=== PATIENT | female | born 1935 | race African-American/Black ===

== ENCOUNTER 2016-08-13 09:00 | Observation (INO) | payer MEDICARE, OTHER ==
[~2016-08-13] VITALS: Ht 157.5 cm; Wt 52.0 kg
[2016-08-13] VITALS (8 sets, daily range): BP systolic 105–144; BP diastolic 41–55; PULSE 60–87; RESP 13–18; TEMP 97.9; Ht 157.5 cm; Wt 52.0 kg
[~2016-08-13 09:00] MED LIST: ATENOLOL PO; LOSARTAN PO; MULTAQ PO; NEXIUM PO; PREVASTATIN PO; [UNRECOGNIZED DRUG - OTHER] PO
[2016-08-13] MEDS ORDERED: ESOM40CA PO (09:29)
[2016-08-13] MEDS ORDERED: ATEN50TA PO (09:29)
[2016-08-13] MEDS ORDERED: PRAV40TA76 PO (09:29)
[2016-08-13] MEDS ORDERED: CLOP75TA27 PO (09:30)
[2016-08-13] MEDS ORDERED: ESOM40CA51 PO (09:30)
[2016-08-13] MEDS ORDERED: DRON400T2 PO (09:31)
[2016-08-13] MEDS ORDERED: LOSA1TAB19 PO (09:35)
[2016-08-13] MEDS ORDERED: ONDANSETRON 4 MG INJ IV STA (09:38)
[2016-08-13] MEDS ORDERED: HYDROmorphONE 1 MG/ML SYG IV STA ×2 (09:38→13:38)
[2016-08-13 09:53] LABS: ADD SCAN DIFF NO
[2016-08-13 09:57] LABS: BASOPHIL # 0.1 10^3/ul (0.0-0.1); BASOPHILS % 0.9 % (0.0-2.0); EOSINOPHILS # 0.6 10^3/ul (0.0-0.5); EOSINOPHILS % 9.7 % (0.0-7.0); HEMATOCRIT 28.6 % (37.0-47.0); HEMOGLOBIN 8.9 g/dl (12.0-16.0); LYMPHOCYTES # 1.5 10^3/ul (0.8-2.9); LYMPHOCYTES % 26.1 % (15.0-51.0); MEAN CORPUSCULAR HEMOGLOBIN 30.1 pg (29.0-33.0); MEAN CORPUSCULAR HGB CONC 31.1 g/dl (32.0-37.0); MEAN CORPUSCULAR VOLUME 96.6 fl (82.0-101.0); MEAN PLATELET VOLUME 11.3 fl (7.4-10.4); MONOCYTE # 0.3 10^3/ul (0.3-0.9); MONOCYTES % 5.6 % (0.0-11.0); NEUTROPHIL # 3.4 10^3/ul (1.6-7.5); NEUTROPHILS % 57.5 % (39.0-77.0); PLATELET COUNT 234 10^3/UL (140-415); RED BLOOD COUNT 2.96 10^6/ul (4.20-5.40); RED CELL DISTRIBUTION WIDTH 13.2 % (11.5-14.5); WHITE BLOOD COUNT 5.9 10^3/ul (4.8-10.8)
--- NOTE | 2016-08-13 10:01 | RADRPT ---
PROCEDURE: XR Chest. CLINICAL INDICATION: Possible stroke TECHNIQUE: PA and Lateral views of the chest were obtained. COMPARISON: FINDINGS: The cardiac silhouette is mildly enlarged. Right dual-chamber chest pacemaker in place. Atheroscler otic calcification of the aortic arch. .The lungs are clear without pleural effusion or focal conso lidation. No pneumothorax. The osseous structures and soft tissues are unremarkable. IMPRESSION: 1. No evidence for active cardiopulmonary disease. RPTAT:AAJJ Physician Edilma Date Time Electronically viewed and signed by Physician Edilma on 08/13/2016 10:01 NEFTALI/
[2016-08-13 10:17] LABS: INR 0.89; PT RATIO 0.9
[2016-08-13 10:18] LABS: CHLORIDE 105 mmol/L (97-110); PARTIAL THROMBOPLASTIN TIME 29.7 Sec (25.0-35.0); POTASSIUM 5.3 mmol/L (3.5-5.1); SODIUM 144 mmol/L (135-144)
[2016-08-13 10:21] LABS: ANION GAP 19 (8-16); BLOOD UREA NITROGEN 31 mg/dl (7-20); CALCIUM 9.8 mg/dl (8.4-10.2); CARBON DIOXIDE 25 mmol/L (21-31); CREATININE 1.43 mg/dl (0.44-1.00); GLUCOSE 107 mg/dl (70-220)
[2016-08-13 10:26] LABS: ADD UMIC YES; URINE BILIRUBIN (Dip) NEGATIVE (NEGATIVE); URINE BLOOD (Dip) NEGATIVE (NEGATIVE); URINE COLOR LT. YELLOW (YELLOW); URINE GLUCOSE (Dip) NEGATIVE (NEGATIVE); URINE KETONES (Dip) NEGATIVE (NEGATIVE); URINE LEUKOCYTE ESTERASE (Dip) TRACE (NEGATIVE); URINE NITRITE (Dip) NEGATIVE (NEGATIVE); URINE TOTAL PROTEIN (Dip) NEGATIVE (NEGATIVE); URINE UROBILINOGEN (Dip) 0.2 E.U./dL (0.1-1.0)
[2016-08-13 10:33] LABS: TROPONIN-I < 0.010 ng/ml (0.00-0.12)
[2016-08-13 10:48] LABS: BARBITURATES Negative (NEGATIVE); BENZODIAZEPINES Negative (NEGATIVE); CANNABINOIDS Negative (NEGATIVE)
--- NOTE | 2016-08-13 10:49 | RADRPT ---
PROCEDURE: CT Brain without contrast. CLINICAL INDICATION: Vertigo. Weakness.. TECHNIQUE: A CT of the brain was performed on a multi-slice CT scanner utilizing axial sections fr om the skull base through the vertex without contrast. Coronal and sagittal reconstructed images wer e provided. One or more of the following does reduction techniques were used: Automated exposure c ontrol; adjustment of the mA and/or kV according to patient size; use of the aorta of reconstruction technique. Images were reviewed on a high-resolution PACS workstation. Exam DLP equals 554.95 mGy- cm. The CTDI equals 39.46 mGy COMPARISON: CT brain 06/19/2013 FINDINGS: Mild diffuse cerebral and cerebellar atrophy is present. There is no evidence of intracranial hemor rhage, mass effect or midline shift. No abnormal intra-axial or extra-axial fluid collections are s een. There are mild deep white matter patchy hypodensities which are nonspecific, but typically see n in small vessel chronic ischemic disease. The density of the brain is otherwise normal and the g ray/white matter differentiation is well preserved. The osseous structures and visualized paranasal sinuses are unremarkable. IMPRESSION: 1. No CT evidence of acute intracranial pathology. 2. Mild diffuse atrophy and deep white matter microangiopathic ischemic changes. RPTAT: KK .Markel Martinez MD, Date Time Electronically viewed and signed by .Markel Martinez MD, MD on 08/13/2016 10:49 .B/
[2016-08-13 10:50] LABS: COCAINE Negative (NEGATIVE); OPIATES Negative (NEGATIVE)
[2016-08-13] MEDS ORDERED: ONDANSETRON 4 MG INJ IV PRN (11:00)
[2016-08-13] MEDS ORDERED: ACETAMINOPHEN 325 MG TAB PO PRN (11:00)
[2016-08-13 11:07] LABS: SQUAMOUS EPITHELIAL CELL,UR OCCASIONAL; URINE RBCS NONE SEEN /HPF (0)
--- NOTE | 2016-08-13 12:46 | ERA ---
ER Documentation Chief Complaint Date/Time DATE: 08/13/16 TIME: 12:43 Chief Complaint HEADACHE DIZZINESS AND VOMITING SINCE THIS MORNING. NO NEURO DEFICIT HPI Patient is an 81-year-old female with anemia and atrial fibrillation who presents with dizziness. She had headache as well. The symptoms started at 6 AM but she woke up with the symptoms. She had no symptoms yesterday. She has nausea and vomiting. She has no fevers and no weakness. She has no slurred speech. She is currently on Plavix and has an allergy to aspirin. Upon review of old medical records this is the patient's fifth visit to the ER since 2008. Her primary doctor is Dr. Lis Steven. ROS All systems reviewed and are negative except as per history of present illness. Medications Home Meds Reported Medications Losartan-Hydrochlorothiazide (Losartan-HCTZ) 50-12.5 Mg Tab, 1 TAB PO DAILY, TAB 08/13/16 Dronedarone Hydrochloride* (Multaq*) 400 Mg Tablet, 400 MG PO DAILY, TAB 08/13/16 Esomeprazole Magnesium (Esomeprazole Magnesium) 40 Mg Capsule.dr, 40 MG PO BEFORE BREAKFAST, #30 CAP 08/13/16 Clopidogrel Bisulfate (Clopidogrel) 75 Mg Tablet, 75 MG PO DAILY, #30 TAB 08/13/16 Pravastatin Sodium* (Pravastatin Sodium*) 40 Mg Tablet, 40 MG PO HS, TAB 08/13/16 Esomeprazole Mag Trihydrate (Nexium) 40 Mg Capsule.dr, 40 MG PO DAILY, #30 CAP 08/13/16 Atenolol* (Atenolol*) 50 Mg Tablet, 50 MG PO BID, #60 TAB 08/13/16 Discontinued Reported Medications [Nexium] No Conflict Check, MG PO DAILY 06/19/13 [Losartan] No Conflict Check, MG PO DAILY 06/19/13 [Chlovedotren] No Conflict Check, MG PO DAILY 06/19/13 [Prevastatin] No Conflict Check, MG PO DAILY 06/19/13 [Atenolol] No Conflict Check, MG PO DAILY 06/19/13 [Multaq] No Conflict Check, MG PO DAILY 06/19/13 Allergies Allergies: Coded Allergies: ibuprofen (Verified Allergy, Mild, 08/13/16) prochlorperazine (Verified Allergy, Mild, 08/13/16) Uncoded Allergies: ASPIRIN (Allergy, Mild, 03/28/09) PMhx/Soc History of Surgery: Yes (PACEMAKER) Anesthesia Reaction: No Hx Neurological Disorder: No Hx Respiratory Disorders: No Hx Cardiac Disorders: Yes (HTN, AFIB) Hx Psychiatric Problems: No Hx Miscellaneous Medical Probl: No Hx Alcohol Use: No Hx Substance Use: No Hx Tobacco Use: No Smoking Status: Never smoker FmHx Family History: diabetes Physical Exam Vitals Vital Signs Date Time Temp Pulse Resp B/P Pulse Ox O2 Delivery O2 Flow Rate FiO2 08/13/16 12:28 60 18 144/55 100 Nasal Cannula 2.0 08/13/16 12:15 60 08/13/16 10:00 97.9 63 20 155/60 100 Nasal Cannula 2.0 08/13/16 09:35 Nasal Cannula 2 08/13/16 09:05 97.9 66 20 151/67 100 Physical Exam Const: Mild distress Head: Atraumatic Eyes: Normal Conjunctiva ENT: Normal External Ears, Nose and Mouth. Neck: Full range of motion..~ No meningismus. Resp: Clear to auscultation bilaterally Cardio: Regular rate and rhythm, no murmurs Abd: Soft, non tender, non distended. Normal bowel sounds Skin: No petechiae or rashes Back: No midline or flank tenderness Ext: No cyanosis, or edema Neur: Awake and alert, no slurred speech, no weakness of the arms or legs, however patient is dizzy when she opens her eyes Psych: Normal Mood and Affect Result Diagram: 08/13/1647 08/13/16 0947 Results 24 hrs Laboratory Tests Test 08/13/16 09:47 08/13/16 09:57 08/13/16 10:11 Activated Partial Thromboplast Time 29.7Sec Anion Gap 19 Basophils # 0.110^3/ul Basophils % 0.9% Blood Urea Nitrogen 31mg/dl Calcium Level 9.8mg/dl Carbon Dioxide Level 25mmol/L Chloride Level 105mmol/L Creatinine 1.43mg/dl Eosinophils # 0.610^3/ul Eosinophils % 9.7% Glucose Level 107mg/dl Hematocrit 28.6% Hemoglobin 8.9g/dl Hemoglobin A1c 5.4% INR International Normalized Ratio 0.89 Lymphocytes # 1.510^3/ul Lymphocytes % 26.1% Mean Corpuscular Hemoglobin 30.1pg Mean Corpuscular Hemoglobin Concent 31.1g/dl Mean Corpuscular Volume 96.6fl Mean Platelet Volume 11.3fl Monocytes # 0.310^3/ul Monocytes % 5.6% Neutrophils # 3.410^3/ul Neutrophils % 57.5% Nucleated Red Blood Cells # 0.010^3/ul Nucleated Red Blood Cells % 0.0/100WBC Platelet Count 38145^3/UL Potassium Level 5.3mmol/L Prothrombin Time 12.0Sec Prothrombin Time Ratio 0.9 Red Blood Count 2.9610^6/ul Red Cell Distribution Width 13.2% Sodium Level 144mmol/L Troponin I < 0.010ng/ml White Blood Count 5.910^3/ul Bedside Glucose 98mg/dL Urine Amphetamines Screen Negative Urine Barbiturates Negative Urine Benzodiazepines Screen Negative Urine Bilirubin NEGATIVE Urine Cannabinoids Negative Urine Clarity CLEAR Urine Cocaine Screen Negative Urine Color LT. YELLOW Urine Glucose NEGATIVE% Urine Hemoglobin NEGATIVE Urine Ketones NEGATIVE Urine Leukocyte Esterase TRACE Urine Microscopic RBC NONE SEEN/HPF Urine Microscopic WBC 0-2/HPF Urine Nitrite NEGATIVE Urine Opiates Screen Negative Urine Specific [place] 1.010 Urine Squamous Epithelial Cells OCCASIONAL Urine Total Protein NEGATIVE Urine Urobilinogen 0.2 E.U./dL Urine pH 6.5 Current Medications Medications (Trade) Dose Ordered Sig/Derek Route PRN Reason Start Time Stop Time Status Last Admin Dose Admin Hydromorphone HCl (Dilaudid) 0.5 mg ONCE STAT IV 08/13/16 09:38 08/13/16 09:40 DC 08/13/16 10:10 Ondansetron HCl (Zofran Inj) 4 mg ONCE STAT IV 08/13/16 09:38 08/13/16 09:40 DC 08/13/16 10:10 Ondansetron HCl (Zofran Inj) 4 mg ER BRIDGE PRN IV NAUSEA AND/OR VOMITING 08/13/16 11:00 08/14/16 10:59 Acetaminophen (Tylenol Tab) 650 mg ER BRIDGE PRN PO MILD PAIN/FEVER 08/13/16 11:00 08/14/16 10:59 08/13/16 11:41 Procedures/MDM CT brain shows no acute abnormality per radiology. Chest x-ray is normal per radiology. EKG read by me: Rate/Rhythm: Paced rhythm at 60 Intervals: Normal Impression: Paced rhythm with negative Sgarbossa criteria Patient is a 81-year-old female with anemia and atrial fibrillation who presents with headache and dizziness. I am concerned for acute stroke which could be a posterior circulation stroke given her symptoms. CT scan shows no intracranial mass or bleed. The patient was given aspirin after her CT scan was negative for bleed. The patient had an NIH stroke scale and bedside swallow evaluation performed. I spoke with Dr. Parham the patient's primary doctor who will admit her for a telemetry bed. She is outside the window for TPA given the fact that she woke up with the symptoms. Departure Diagnosis: Primary Impression: Stroke Qualified Code: I63.9 - Cerebrovascular accident (CVA), unspecified mechanism Additional Impression: Dizziness Condition: RENÉE Pantoja MD Aug 13, 2016 12:46
[2016-08-13] MEDS ORDERED: SOD CHLORIDE 0.9% 1,000 ML IV ONE (17:00)
[2016-08-13] MEDS ORDERED: METOCLOPRAMIDE 10 MG INJ IV ONE (17:30)
[2016-08-13] MEDS ORDERED: MECLIZINE 12.5 MG TAB PO ONE (18:00)
--- NOTE | 2016-08-13 20:51 | HP ---
DATE OF ADMISSION: 08/13/2016 CHIEF COMPLAINT: Dizziness and nausea, vomiting. HISTORY OF PRESENT ILLNESS: This 81-year-old Filipina with history of hypertension, chronic anemia, peptic ulcer disease, hypercholesterolemia, paroxysmal AFib/Aflutter, and sick sinus syndrome, status post pacemaker woke up this morning with severe dizziness while in bed. The patient reports that the dizziness is constant, but is exacerbated by head movements. She has been vomiting up clear vomitus and is brought into the emergency room for evaluation. In the emergency room, her head CT was shown be normal, but patient had marked anemia and increased BUN and creatinine as well as elevated potassium, so she is admitted for dehydration and IV fluid, rule out CVA versus labyrinthitis. PAST MEDICAL HISTORY: 1. Hypertension. 2. Anemia. 3. Hypercholesterolemia. 4. Mild chronic kidney disease. 5. Peptic ulcer disease. 6. Paroxysmal atrial fibrillation, atrial flutter. 7. Sick sinus syndrome, status post pacemaker placement in 03/28/2009. ALLERGIES: ASPIRIN, WHICH CAUSES NAUSEA AND VOMITING. SOCIAL HISTORY: The patient never smoked and she does not drink alcohol. She currently lives with her children at home. MEDICATION HISTORY: 1. Nexium 40 mg p.o. every day. 2. Pravastatin 40 mg p.o. every day. 3. Plavix 75 mg p.o. every day. 4. Losartan 50/hydrochlorothiazide 12.5 every day. 5. Mutaq 400 mg p.o. daily. 6. Atenolol 50 mg p.o. b.i.d. REVIEW OF SYSTEMS: CONSTITUTIONAL: The patient denies any headache or fatigue, or malaise. HEENT: She reports that she has been having ears and mild nasal congestion for the past few days. No throat. No cough. CHEST: No coughing, wheezing, or shortness of breath. No chest pain or palpitation. ABDOMEN: No abdominal pain, but patient has been having nausea and vomiting. She denies any diarrhea or constipation. EXTREMITIES: Denies any increased edema or leg cramps. NEUROLOGIC: The patient denies any numbness or tingling or localized weakness. GENITOURINARY: Denies any urinary frequency, burning, or hematuria. PHYSICAL EXAMINATION: GENERAL: Elderly female who is lying in bed, appearing tired and weak. VITAL SIGNS: Temperature 97.9, blood pressure 144/55, pulse of 60, respiration rate 18, O2 saturation 100% on 2 liters nasal cannula. HEENT: Pupils equally round, reactive to light. Oropharynx clear. NECK: No JVD. LUNGS: Clear to auscultation. CARDIAC: Regular rate and rhythm. Normal S1, S2. ABDOMEN: Active bowel sounds, soft, nondistended, nontender. EXTREMITIES: No clubbing, cyanosis, no edema. NEUROLOGIC: Cranial nerves II through XII grossly intact. Motor and sensory normal to light touch, and 4+/5 throughout. LABORATORY: WBC 5.9, hemoglobin 8.9, hematocrit 28.6, platelet count 234,000. Sodium 144, potassium 5.3, chloride 105, bicarbonate 25, BUN 31, creatinine 1.43 , glucose 107, calcium 9.8. Troponin 0.01. The patient's chest x-ray shows no active cardiopulmonary disease. Head CT shows no evidence of acute intracranial pathology. There is mild diffuse atrophy and deep white matter microangiopathic ischemic changes. IMPRESSION: 1. Dizziness. Less likely to be due to cerebrovascular accident since the head CT is negative. Would like to order a head MRI, but patient has a pacemaker, so I will talk to our radiologist to see if CT angiogram is a better option for the posterior fossa. Otherwise, will try the patient on meclizine and see if this controls her vertigo. In the meantime, the patient is having nausea and vomiting, so will continue to control this with Reglan and Zofran if needed and advance diet as tolerated. We will also hydrate the patient with some IV fluid for the mild dehydration. 2. Anemia. The patient is being evaluated by a farm laborer as an outpatient for other causes of refractory anemia, but she does have very mild stage I chronic kidney disease, so we will go ahead and give her an Epogen shot while she is in the hospital and follow H and H to see if we need to transfuse. 3. Hypertension and cardiac arrhythmia. Continue Mutaq and beta-martir, but hold Losartan for now until blood pressure comes up higher. Dictated By: SHERINE ESCOBAR MD DP/NTS Conf#: [id number] DID#: [id number] MTDD
[2016-08-13] MEDS: ATORVASTATIN 10 MG TAB PO SCH (22:59)
[2016-08-13] MEDS: ATENOLOL 50 MG TAB PO SCH (23:00)
[2016-08-14] VITALS (12 sets, daily range): BP systolic 108–137; BP diastolic 52–60; PULSE 60–64; RESP 17–19
[2016-08-14] MEDS: PANTOPRAZOLE (EC) 40 MG TAB PO SCH (06:18)
[2016-08-14 06:56] LABS: CHOL/HDL RATIO 3.8 RATIO
[2016-08-14] MEDS: DRONEDARONE HYDROCHLORIDE 400 MG TAB PO SCH (08:50)
[2016-08-14] MEDS: CLOPIDOGREL 75 MG TAB PO SCH (08:51)
[2016-08-14] MEDS: ATENOLOL 50 MG TAB PO SCH ×2 (08:51→20:33)
[2016-08-14] MEDS ORDERED: MECLIZINE 25 MG TAB PO PRN (15:00)
[2016-08-14] MEDS ORDERED: EPOETIN ALFA (NESRD) 3,000 UNITS/ML VIAL SC ONE (16:30)
[2016-08-14 16:51] LABS: ADD SCAN DIFF NO; BASOPHILS % 0.7 % (0.0-2.0); EOSINOPHILS # 0.5 10^3/ul (0.0-0.5); EOSINOPHILS % 8.2 % (0.0-7.0); HEMATOCRIT 26.3 % (37.0-47.0); HEMOGLOBIN 8.4 g/dl (12.0-16.0); MEAN CORPUSCULAR HEMOGLOBIN 31.2 pg (29.0-33.0); MEAN CORPUSCULAR HGB CONC 31.9 g/dl (32.0-37.0); MEAN CORPUSCULAR VOLUME 97.8 fl (82.0-101.0); MEAN PLATELET VOLUME 10.8 fl (7.4-10.4); MONOCYTE # 0.6 10^3/ul (0.3-0.9); MONOCYTES % 9.3 % (0.0-11.0); NEUTROPHIL # 2.9 10^3/ul (1.6-7.5); NEUTROPHILS % 48.6 % (39.0-77.0); PLATELET COUNT 213 10^3/UL (140-415); RED BLOOD COUNT 2.69 10^6/ul (4.20-5.40); RED CELL DISTRIBUTION WIDTH 13.2 % (11.5-14.5)
[2016-08-14 17:02] LABS: POTASSIUM 4.5 mmol/L (3.5-5.1)
[2016-08-14 17:05] LABS: CREATININE 1.39 mg/dl (0.44-1.00)
[2016-08-14] MEDS ORDERED: DIPHENHYDRAMINE 25 MG CAP PO PRN (18:00)
[2016-08-14] MEDS ORDERED: FUROSEMIDE 20 MG INJ IV PRN (18:00)
[2016-08-14] MEDS ORDERED: ACETAMINOPHEN 500 MG TAB PO PRN (18:00)
--- NOTE | 2016-08-14 18:54 | PN ---
DATE: 08/14/2016 SUBJECTIVE: The patient reports that she is no longer dizzy but still feels very weak and shortness of breath on exertion. OBJECTIVE: VITAL SIGNS: Temperature 97.9, blood pressure 109/52, pulse of 60, respiration rate 17, O2 saturati on 96% on room air. HEENT: Pupils equally round, reactive to light. Mild conjunctival pallor. Oropharynx clear. CHEST: Lungs are clear to auscultation with minimal bibasilar crackles. CARDIAC: Regular rate and rhythm. Normal S1, S2. ABDOMEN: Active bowel sounds. Soft, nondistended, nontender. EXTREMITIES: No clubbing, cyanosis or edema. LABORATORY DATA: WBC 6.0, hemoglobin 8.4, hematocrit 26.3, platelet count 213,000. Sodium 145, pot assium 4.5, chloride 106, carbon dioxide 27, BUN 32, creatinine 1.39, glucose 87. ASSESSMENT AND PLAN: 1. Dizziness with nausea and vomiting, most likely due to viral labyrinthitis and is improved with meclizine. 2. Weakness with severe anemia. The patient is getting workup for occult anemia at claims account specialist's office. Will transfuse her with 2 units of packed red blood cells for now to improve pulmonary and cardiac function. 3. Elevated BUN, creatinine. May be due to dehydration but also due to mild chronic renal failure. Will hold off on further IV fluid since the patient will be receiving packed red blood cells. The patient has been getting Epogen shot, but I do not expect this to kick in for several days. Dictated By: SHERINE ESCOBAR MD DP/NTS Conf#: [id number] DID#: [id number]
[2016-08-14] MEDS: ATORVASTATIN 10 MG TAB PO SCH (20:33)
[2016-08-15] VITALS (13 sets, daily range): BP systolic 128–186; BP diastolic 55–72; PULSE 60; RESP 18–20
[2016-08-15] MEDS: PANTOPRAZOLE (EC) 40 MG TAB PO SCH (06:11)
[2016-08-15 07:32] LABS: ADD SCAN DIFF NO
[2016-08-15 07:40] LABS: BASOPHILS % 0.8 % (0.0-2.0); EOSINOPHILS # 0.7 10^3/ul (0.0-0.5); EOSINOPHILS % 14.1 % (0.0-7.0); HEMOGLOBIN 11.6 g/dl (12.0-16.0); LYMPHOCYTES # 1.6 10^3/ul (0.8-2.9); LYMPHOCYTES % 32.8 % (15.0-51.0); MEAN CORPUSCULAR HEMOGLOBIN 30.3 pg (29.0-33.0); MEAN CORPUSCULAR HGB CONC 32.2 g/dl (32.0-37.0); MEAN PLATELET VOLUME 11.2 fl (7.4-10.4); MONOCYTE # 0.4 10^3/ul (0.3-0.9); MONOCYTES % 8.8 % (0.0-11.0); NEUTROPHIL # 2.1 10^3/ul (1.6-7.5); NEUTROPHILS % 43.1 % (39.0-77.0); PLATELET COUNT 209 10^3/UL (140-415); RED BLOOD COUNT 3.83 10^6/ul (4.20-5.40); RED CELL DISTRIBUTION WIDTH 14.2 % (11.5-14.5); WHITE BLOOD COUNT 4.8 10^3/ul (4.8-10.8)
[2016-08-15 07:46] LABS: POTASSIUM 3.9 mmol/L (3.5-5.1)
[2016-08-15 07:48] LABS: CREATININE 1.21 mg/dl (0.44-1.00)
[2016-08-15 07:49] LABS: CALCIUM 9.6 mg/dl (8.4-10.2)
[2016-08-15] MEDS: CLOPIDOGREL 75 MG TAB PO SCH (08:58)
[2016-08-15] MEDS: ATENOLOL 50 MG TAB PO SCH (08:58)
[2016-08-15] MEDS: DRONEDARONE HYDROCHLORIDE 400 MG TAB PO SCH (08:58)
[2016-08-15] MEDS ORDERED: MECL-77 PO (16:16)
--- NOTE | 2016-08-15 16:38 | DS ---
DATE OF ADMISSION: 08/13/2016 DATE OF DISCHARGE: 08/15/2016 DISCHARGE DIAGNOSES: 1. Vertigo or dizziness. 2. Acute labyrinthitis. 3. Severe anemia. 4. Chronic kidney disease. HOSPITAL COURSE: This 81-year-old Filipina female came in with acute onset of severe dizziness with nausea and vomiting on the day of admission. The patient's head CT was negative, but her laborator y data was notable for severe anemia with hemoglobin of 8.4 and hematocrit of 26.3, which is worse t swann patient's baseline, chronic anemia. Her chem panel was also notable for elevated BUN and creati nine, and the patient received IV fluid hydration as well as meclizine administration with improveme nt of her dizziness but still had persistent weakness. The patient was considered for head MRI, but we were unable to do this procedure due to the fact the patient had pacemaker placement in 2008. F or her chronic anemia, she received 2 packed red blood cell transfusions with marked improvement of her H and H to 11.6 and 36.0 respectively on the day of discharge. DISPOSITION: The patient is discharged to home in good condition. FOLLOWUP: The patient is instructed to follow up with Dr. Sherine Steven within 1 to 2 weeks. She has appointment to follow up with her meat stuffer, Dr. Ibrahim, within this next month. DISCHARGE MEDICATIONS: Same as admission medicine with the addition of meclizine 25 mg t.i.d. as ne eded for dizziness. Dictated By: SHERINE STEVEN MD DP/NTS Conf#: [id number] DID#: [id number]
== END 2016-08-15 17:55 | disposition home or self-care (01) ==
LOC: E/R 09:00 → TEL 11:01 → INTOOBSV 11:01
PROVIDERS: ADMIT Internal Medicine; ATTEND Internal Medicine
DX: I12.9 Hypertensive chronic kidney disease with stage 1 through stage 4 chronic kidney disease, or unspecified chronic kidney disease (principal); N18.9 Chronic kidney disease, unspecified; D63.8 Anemia in other chronic diseases classified elsewhere; I48.0 Paroxysmal atrial fibrillation; I48.92 Unspecified atrial flutter; I49.5 Sick sinus syndrome; Z95.0 Presence of cardiac pacemaker; R42 Dizziness and giddiness; H83.09 Labyrinthitis, unspecified ear; R11.2 Nausea with vomiting, unspecified
CPT/HCPCS: 36415; 36430; 70450; 71010; 80048; 80061; 80307; 81001; 82962; 83036; 84484; 85025; 85610; 85730; 86850; 86900; 86901; 86920; 92610; 93005; 96374; 96375; 96376; 99285; G0378; G8996; G8997; G8998; J0885; J1170; J1940; J2405; J2765; J7030; P9016; 81003

== ENCOUNTER 2019-01-30 17:45 | Inpatient (IN) | payer MEDICARE, OTHER ==
[~2019-01-30] VITALS: Ht 152.4 cm; Wt 53.0 kg
[~2019-01-30 17:45] MED LIST changes: +ALLO100T PO; +ATEN-138 PO; +ATEN-51 PO; +ATEN50TA PO; -ATENOLOL PO; +CARV6.2579 PO; +CLOP75TA27 PO; +DRON400T2 PO; +ESOM40CA51 PO; +LOSA1TAB22 PO; +LOSA25TA12 PO; -LOSARTAN PO; +MECL-77 PO; -MULTAQ PO; -NEXIUM PO; +OMEP40CA6 PO; +PRAV40TA76 PO; -PREVASTATIN PO; -[UNRECOGNIZED DRUG - OTHER] PO
[2019-01-30] MEDS ORDERED: SOD CHLORIDE 0.9% 1,000 ML IV STA (18:18)
[2019-01-30] MEDS ORDERED: ACETAMINOPHEN 325 MG TAB PO PRN (18:30)
[2019-01-30] MEDS ORDERED: ONDANSETRON 4 MG INJ IV PRN ×2 (18:30→20:00)
[2019-01-30] MEDS ORDERED: MECLIZINE 25 MG TAB PO PRN (20:00)
[2019-01-30] MEDS ORDERED: DOCUSATE SODIUM 100 MG CAP PO PRN (20:00)
[2019-01-30] MEDS ORDERED: ZOLPIDEM 5 MG TAB PO PRN (20:00)
[2019-01-30] MEDS ORDERED: NACL 0.9% 3 ML SYG IV SCH (20:00)
[2019-01-30] MEDS ORDERED: NON-FORMULARY/PATIENT OWN MED (Pravastatin Sodium* 40 MG) PO SCH (21:00)
[2019-01-30 21:35] VITALS: BP 125/73; RESP 17
[2019-01-30 22:00] VITALS: Ht 152.4 cm; Wt 53.0 kg
[2019-01-31] VITALS (9 sets, daily range): BP systolic 118–162; BP diastolic 65–75; PULSE 65–66; RESP 12–18
[2019-01-31] MEDS ORDERED: PANTOPRAZOLE (EC) 40 MG TAB PO SCH (06:00)
[2019-01-31] MEDS ORDERED: NON-FORMULARY/PATIENT OWN MED (Esomeprazole Magnesium 40 MG) PO SCH (07:00)
[2019-01-31] MEDS: LOSARTAN 50 MG TAB PO SCH (08:43)
[2019-01-31] MEDS: HYDROCHLOROTHIAZIDE 12.5 MG CAP PO SCH (08:43)
[2019-01-31] MEDS: DRONEDARONE HYDROCHLORIDE 400 MG TAB PO SCH (08:43)
[2019-01-31] MEDS ORDERED: NON-FORMULARY/PATIENT OWN MED (Losartan-Hydrochlorothiazide (Losartan-HCTZ) 1 TAB) PO SCH (09:00)
[2019-01-31] MEDS ORDERED: FUROSEMIDE 20 MG INJ IV ONE (10:30)
[2019-01-31] MEDS: CALCIUM CARBONATE 500 MG CHEW TAB PO SCH ×2 (12:12→20:58)
[2019-01-31] MEDS: PANTOPRAZOLE 40 MG INJ IV SCH (17:34)
[2019-02-01] VITALS: BP 132/62; PULSE 65; RESP 19
[2019-02-01 04:00] VITALS: BP 169/72; PULSE 68; RESP 19
[2019-02-01] MEDS: PANTOPRAZOLE 40 MG INJ IV SCH ×2 (06:25→19:10)
[2019-02-01 07:35] VITALS: BP 158/67; PULSE 64; RESP 20
[2019-02-01] MEDS: LOSARTAN 50 MG TAB PO SCH (09:27)
[2019-02-01] MEDS: DRONEDARONE HYDROCHLORIDE 400 MG TAB PO SCH (09:27)
[2019-02-01] MEDS: HYDROCHLOROTHIAZIDE 12.5 MG CAP PO SCH (09:27)
[2019-02-01] MEDS: CALCIUM CARBONATE 500 MG CHEW TAB PO SCH (09:28)
[2019-02-01 11:12] VITALS: BP 155/68; PULSE 65; RESP 20
[2019-02-01] MEDS ORDERED: CALCIUM CARBONATE 500 MG CHEW TAB PO PRN (11:30)
[2019-02-01] MEDS: ATENOLOL 50 MG TAB PO SCH (12:40)
[2019-02-01 15:52] VITALS: BP 135/58; PULSE 65; RESP 20
[2019-02-01 20:36] VITALS: BP 120/58; PULSE 65; RESP 18
[2019-02-02 00:04] VITALS: BP 124/58; PULSE 65; RESP 20
[2019-02-02 04:06] VITALS: BP 134/62; PULSE 65; RESP 16
[2019-02-02] MEDS: PANTOPRAZOLE 40 MG INJ IV SCH ×3 (05:39→17:24)
[2019-02-02 07:21] VITALS: BP 133/63; PULSE 65; RESP 18
[2019-02-02] MEDS: LOSARTAN 50 MG TAB PO SCH (09:22)
[2019-02-02] MEDS: DRONEDARONE HYDROCHLORIDE 400 MG TAB PO SCH (09:22)
[2019-02-02] MEDS: HYDROCHLOROTHIAZIDE 12.5 MG CAP PO SCH (09:22)
[2019-02-02] MEDS: ATENOLOL 50 MG TAB PO SCH (09:23)
[2019-02-02 12:00] VITALS: BP 126/66; PULSE 66; RESP 19
[2019-02-02 15:54] VITALS: BP 122/56; PULSE 65; RESP 19
[2019-02-02] MEDS ORDERED: FUROSEMIDE 40 MG INJ IV SCH (19:00)
[2019-02-02 19:30] VITALS: BP 135/59; PULSE 62; RESP 18
[2019-02-02] MEDS: SPIRONOLACTONE 25 MG TAB PO SCH (20:30)
[2019-02-03] VITALS: BP 119/57; PULSE 67; RESP 17
[2019-02-03] MEDS ORDERED: EPOETIN ALFA-EPBX (NON-ESRD 10,000 UNIT/ML VIAL SC ONE (00:30)
[2019-02-03 03:44] VITALS: BP 117/58; PULSE 64; RESP 18
[2019-02-03] MEDS: PANTOPRAZOLE 40 MG INJ IV SCH ×2 (05:07→17:12)
[2019-02-03 07:20] VITALS: BP 108/52; PULSE 65; RESP 16
[2019-02-03] MEDS ORDERED: POTASSIUM CHLORIDE (SR) 20 MEQ TAB PO SCH (09:00)
[2019-02-03] MEDS ORDERED: FUROSEMIDE 40 MG INJ IV SCH (09:00)
[2019-02-03] MEDS: ATENOLOL 50 MG TAB PO SCH (09:03)
[2019-02-03] MEDS: LOSARTAN 50 MG TAB PO SCH (09:03)
[2019-02-03] MEDS: SPIRONOLACTONE 25 MG TAB PO SCH (09:03)
[2019-02-03] MEDS: DRONEDARONE HYDROCHLORIDE 400 MG TAB PO SCH (09:04)
[2019-02-03] MEDS: ENOXAPARIN 30 MG/0.3 ML SYG SC SCH (09:10)
[2019-02-03 11:23] VITALS: BP 107/51; PULSE 65; RESP 16
[2019-02-03 15:21] VITALS: BP 105/52; PULSE 65; RESP 17
[2019-02-03 21:28] VITALS: BP 94/50; PULSE 65; RESP 16
[2019-02-04 00:30] VITALS: BP 90/47; PULSE 56; RESP 16
[2019-02-04] MEDS: PANTOPRAZOLE 40 MG INJ IV SCH ×2 (06:08→17:35)
[2019-02-04 07:46] VITALS: BP 121/56; PULSE 65; RESP 17
[2019-02-04] MEDS: SPIRONOLACTONE 25 MG TAB PO SCH (08:20)
[2019-02-04] MEDS: DRONEDARONE HYDROCHLORIDE 400 MG TAB PO SCH (08:21)
[2019-02-04] MEDS: ATENOLOL 25 MG TAB PO SCH ×2 (08:22→21:06)
[2019-02-04] MEDS: ENOXAPARIN 30 MG/0.3 ML SYG SC SCH (08:25)
[2019-02-04] MEDS ORDERED: FUROSEMIDE 40 MG TAB PO SCH ×2 (09:00)
[2019-02-04] MEDS: HYDROCHLOROTHIAZIDE 12.5 MG CAP PO SCH (10:19)
[2019-02-04 11:08] VITALS: BP 101/52; PULSE 65; RESP 16
[2019-02-04 15:18] VITALS: BP 98/53; PULSE 66; RESP 20
[2019-02-04 19:26] VITALS: BP 114/52; PULSE 62; RESP 20
[2019-02-05] VITALS: BP 99/52; PULSE 65; RESP 17
[2019-02-05 04:41] VITALS: BP 101/58; PULSE 65; RESP 17
[2019-02-05] MEDS: PANTOPRAZOLE 40 MG INJ IV SCH ×2 (05:31→18:34)
[2019-02-05 07:41] VITALS: BP 98/51; PULSE 65; RESP 18
[2019-02-05] MEDS: DRONEDARONE HYDROCHLORIDE 400 MG TAB PO SCH (08:24)
[2019-02-05] MEDS: ATENOLOL 25 MG TAB PO SCH ×2 (08:25→22:01)
[2019-02-05] MEDS: ENOXAPARIN 30 MG/0.3 ML SYG SC SCH (08:28)
[2019-02-05 11:15] VITALS: BP 107/65; PULSE 65; RESP 20
[2019-02-05 15:31] VITALS: BP 94/47; PULSE 65; RESP 20
[2019-02-05 20:55] VITALS: BP 107/53; PULSE 65; RESP 16
[2019-02-06 00:29] VITALS: BP 97/57; PULSE 66; RESP 16
[2019-02-06 04:09] VITALS: BP 100/57; PULSE 65; RESP 16
[2019-02-06] MEDS: PANTOPRAZOLE 40 MG INJ IV SCH (06:27)
[2019-02-06 07:34] VITALS: BP 108/57; PULSE 65; RESP 18
[2019-02-06] MEDS: DRONEDARONE HYDROCHLORIDE 400 MG TAB PO SCH (08:46)
[2019-02-06] MEDS: ATENOLOL 25 MG TAB PO SCH (08:46)
[2019-02-06] MEDS: ENOXAPARIN 30 MG/0.3 ML SYG SC SCH (09:00)
[2019-02-06 11:04] VITALS: BP 101/57; PULSE 65; RESP 18
[2019-02-06 15:12] VITALS: BP 108/58; PULSE 65; RESP 20
== END 2019-02-06 18:13 | disposition home health service (06) | DRG 293 ==
LOC: E/R 17:45 → TEL 18:30 → OBSVTOIN 02-01 15:56
PROVIDERS: ADMIT Internal Medicine; ATTEND Internal Medicine
PROC: 30233N1 Transfusion of Nonautologous Red Blood Cells into Peripheral Vein, Percutaneous Approach (ICD-10-PCS; principal; 2019-01-31)
DX: I13.0 Hypertensive heart and chronic kidney disease with heart failure and stage 1 through stage 4 chronic kidney disease, or unspecified chronic kidney disease (principal); I49.5 Sick sinus syndrome; I48.0 Paroxysmal atrial fibrillation; K76.0 Fatty (change of) liver, not elsewhere classified; D64.9 Anemia, unspecified; I50.9 Heart failure, unspecified; N18.9 Chronic kidney disease, unspecified; E78.5 Hyperlipidemia, unspecified; Z95.0 Presence of cardiac pacemaker
CPT/HCPCS: 36415; 36430; 71045; 74176; 76700; 80048; 80053; 80061; 80162; 82150; 82270; 82550; 82553; 83690; 83735; 83880; 84439; 84443; 84484; 85025; 85610; 85651; 85730; 86704; 86706; 86709; 86803; 86850; 86900; 86901; 86920; 87340; 93005; 93306; G0378; C9113; J1650; J1940; J7030; P9016; Q5106

== ENCOUNTER 2019-03-10 09:19 | Day surgery (SDC) | payer MEDICARE, OTHER ==
[~2019-03-10] VITALS: Ht 152.4 cm; Wt 49.6 kg
[~2019-03-10 09:19] MED LIST changes: -ATEN-138 PO; -ATEN50TA PO; -ESOM40CA51 PO; -LOSA1TAB22 PO; -MECL-77 PO; +OMEP40CA38 PO; -OMEP40CA6 PO
[2019-03-10 10:55] VITALS: Ht 152.4 cm; Wt 49.6 kg
[2019-03-10] MEDS ORDERED: PROPOFOL 20 ML ONE (11:27)
[2019-03-10] MEDS ORDERED: LIDOCAINE 2% (SDV) 5 ML INJ ONE (11:27)
[2019-03-10 11:30] VITALS: BP 204/81; PULSE 59; RESP 18
[2019-03-10 11:53] VITALS: BP 154/70; PULSE 60; RESP 15
[2019-03-10] MEDS ORDERED: ONDANSETRON 4 MG INJ IV PRN (12:00)
[2019-03-10] MEDS ORDERED: EPHEDrine 25 MG/5 ML SYG IV PRN (12:00)
[2019-03-10] MEDS ORDERED: LABETALOL HCL 20MG INJ IV PRN (12:00)
[2019-03-10] MEDS ORDERED: hydrALAzine 20 MG INJ IV PRN (12:00)
[2019-03-10 12:07] VITALS: BP 173/73; PULSE 58; RESP 14
== END 2019-03-10 14:11 | disposition home or self-care (01) ==
LOC: GIL 09:19
PROVIDERS: ATTEND Internal Medicine Gastroenterology
DX: K29.30 Chronic superficial gastritis without bleeding (principal)
CPT/HCPCS: 88305; 88312